=== PATIENT | female | born 1990 | race Caucasian/White ===

== ENCOUNTER 2025-05-09 16:01 | Inpatient (IN) | payer BC ==
[~2025-05-09] VITALS: Ht 170.2 cm; Wt 58.1 kg
[2025-05-09] MEDS ORDERED: ONDANSETRON HCL/PF 4 MG/2 ML VIAL ONE ×2 (16:33→22:52)
[2025-05-09] MEDS ORDERED: KETOROLAC TROMETHAMINE 15 MG/ML VIAL ONE (16:33)
[2025-05-09] MEDS ORDERED: MORPHINE SULFATE INJ 4 MG/ML DISP.SYRIN ONE (16:34)
[2025-05-09] MEDS: IV LR 1000 ML 1,000 ML IV ONE (16:50)
[2025-05-09] MEDS: IV NS 0.9% 1,000 ML BAG IV ONE (16:50)
[2025-05-09] MEDS: MORPHINE SULFATE INJ 2 MG/ML DISP.SYRIN IV ONE (16:50)
[2025-05-09] MEDS: ONDANSETRON HCL/PF 4 MG/2 ML VIAL IVP ONE (16:50)
[2025-05-09 17:02] LABS: PLATELET COUNT (AUTO) 254 K/uL (150-450); RED BLOOD CELL COUNT(AUTO) 5.16 MIL/uL (4.0-5.2); RED CELL DISTRIBUTION WIDTH 13.4 % (11.5-15.0); WHITE BLOOD COUNT (AUTO) 8.4 K/uL (4.3-11.0)
[2025-05-09 17:10] LABS: CALCIUM, SERUM 10.4 mg/dL (8.5-10.1); CREATININE 0.6 mg/dL (0.6-1.3); SODIUM SERUM 137.0 mmol/L (136-145); UREA NITROGEN, BLOOD 10.0 mg/dL (7-18)
[2025-05-09 17:17] LABS: ASPARTATE AMINOTRANSFERASE 20.0 U/L (15-37); TOTAL PROTEIN, SERUM 7.8 g/dL (6.4-8.2)
[2025-05-09] MEDS: KETOROLAC TROMETHAMINE 15 MG/ML VIAL IV ONE (17:28)
[2025-05-09 17:54] LABS: APPEARANCE,URINE CLEAR (CLEAR); BLOOD, URINE 1+ Ery/uL (NEGATIVE); LEUKOCYTE ESTERASE ,URINE NEGATIVE (NEGATIVE); NITRITE, URINE NEGATIVE (NEGATIVE); UGLUCOSE TRACE mg/dL (NEGATIVE)
[2025-05-09 18:18] LABS: SQUAMOUS EPITHELIAL CELL,UR Rare /HPF (None Seen)
[2025-05-09 18:30] LABS: ADD URINE CULTURE NO
[2025-05-09] MEDS ORDERED: HYDROMORPHONE 1 MG/1 ML DISP.SYRIN ONE (18:57)
[2025-05-09] MEDS: HYDROMORPHONE INJ 2 MG/ML DISP.SYRIN IV ONE (19:05)
[2025-05-09] MEDS ORDERED: NA PHOS,M-B/NA PHOS,DI-BA 1 EA ENEMA RC ONE (20:22)
[2025-05-09] MEDS: LACTULOSE 10 G/15 ML UDC (PYXIS) PO ONE (20:22)
[2025-05-09] MEDS: MINERAL OIL 133 ML (PYXIS) 1 EA ENEMA RC ONE (20:22)
[2025-05-09] MEDS ORDERED: LACTULOSE 10 G/15 ML UDC (PYXIS) ONE (20:22)
[2025-05-09] MEDS ORDERED: MAG HYDROX/AL HYDROX/SIMETH 30 ML UDC PO PRN (21:00)
[2025-05-09] MEDS ORDERED: ACETAMINOPHEN 325 MG TABLET PO PRN (21:00)
[2025-05-09] MEDS ORDERED: MAGNESIUM HYDROXIDE 30 ML UDC PO PRN (21:00)
[2025-05-09] MEDS: Magnesium 1GM/D5W 100ML PREMIX 100 ML IV SCH (21:23)
[2025-05-09] MEDS: POTASSIUM CL. PREMIX PERIPHER. 50 ML IV SCH (22:20)
[2025-05-09] MEDS ORDERED: POTASSIUM CL. PREMIX PERIPHER. 100 ML ONE (22:37)
[2025-05-09] MEDS ORDERED: POTASSIUM CL. PREMIX PERIPHER. 50 ML ONE (22:52)
[2025-05-09] MEDS ORDERED: MORPHINE SULFATE INJ 2 MG/ML DISP.SYRIN ONE (22:53)
[2025-05-09] MEDS: ONDANSETRON HCL/PF 4 MG/2 ML VIAL IVP PRN (23:03)
[2025-05-09] MEDS: MORPHINE SULFATE INJ 2 MG/ML DISP.SYRIN IV PRN (23:03)
[2025-05-10 03:00] VITALS: BP 142/85; TEMP 97.3; O2SAT 100
[2025-05-10 03:30] VITALS: BP 142/85; TEMP 97.3; O2SAT 100
[2025-05-10] MEDS: IV NS 0.9% 1,000 ML IV PRN (03:33)
[2025-05-10 04:41] VITALS: BP 148/85; TEMP 97.3; O2SAT 100
[2025-05-10 07:02] LABS: PLATELET COUNT (AUTO) 199 K/uL (150-450); RED BLOOD CELL COUNT(AUTO) 4.06 MIL/uL (4.0-5.2); RED CELL DISTRIBUTION WIDTH 13.4 % (11.5-15.0); WHITE BLOOD COUNT (AUTO) 5.6 K/uL (4.3-11.0)
[2025-05-10 07:26] LABS: ASPARTATE AMINOTRANSFERASE 15.0 U/L (15-37); CALCIUM, SERUM 8.9 mg/dL (8.5-10.1); CREATININE 0.5 mg/dL (0.6-1.3); PHOSPHORUS 3.4 mg/dL (2.5-4.9); SODIUM SERUM 142.0 mmol/L (136-145); TOTAL PROTEIN, SERUM 5.9 g/dL (6.4-8.2); UREA NITROGEN, BLOOD 5.0 mg/dL (7-18)
[2025-05-10 08:00] VITALS: BP 117/68; TEMP 98.1; O2SAT 96
[2025-05-10] MEDS: LACTULOSE 10 G/15 ML UDC (PYXIS) PO SCH (08:10)
[2025-05-10] MEDS: PANTOPRAZOLE 40 MG VIAL IV SCH (08:10)
[2025-05-10] MEDS ORDERED: [UNRECOGNIZED DRUG - CODE] SQ (08:40)
[2025-05-10] MEDS ORDERED: BUPR348T PO (08:40)
[2025-05-10] MEDS ORDERED: ESCI20TA PO (08:40)
[2025-05-10] MEDS ORDERED: HYDR200T4 PO (08:40)
[2025-05-10] MEDS ORDERED: THYR30TA2 PO (08:40)
[2025-05-10] MEDS ORDERED: PREG150C PO (08:40)
[2025-05-10] MEDS: POTASSIUM CL. PREMIX PERIPHER. 50 ML IV SCH (10:28)
[2025-05-10 12:00] VITALS: BP 118/78; TEMP 98.6; O2SAT 98
[2025-05-10] MEDS ORDERED: HYOS-15 PO (13:07)
== END 2025-05-10 15:41 | disposition home or self-care (01) | DRG 392 ==
LOC: ER 16:11 → MED 05-10 02:35 → TELE 05-10 02:57
PROVIDERS: ADMIT Nurse Practitioner Family; ATTEND Nurse Practitioner Acute Care
DX: K59.00 Constipation, unspecified (principal); E86.0 Dehydration; E87.6 Hypokalemia; E03.9 Hypothyroidism, unspecified; N28.89 Other specified disorders of kidney and ureter; M32.9 Systemic lupus erythematosus, unspecified; E28.2 Polycystic ovarian syndrome
CPT/HCPCS: 36415; 80048-TC; 80076-TC; 81001; 83690-TC; 83735-TC; 84100-TC; 84443-TC; 84702-TC; 85025-TC; A4223; G0378; J1171; J1885; J2270; J2405; J2470; J3475; J3480; J3490; J7030; J7120